=== PATIENT | male | born 1970 | race African-American/Black ===

== ENCOUNTER 2017-01-06 16:43 | Emergency (ER) | payer OTHER ==
--- NOTE | ~2017-01-06 | EKG ---
PATIENT: DANIEL LINK UNIT #: [id number] Ventricular Rate: 81 BPM Atrial Rate: 81 BPM P-R Interval: 178 ms QRS Duration: 92 ms Q-T Interval: 388 ms QTC Calculation(Bezet): 450 ms P [place]: 67 degrees Calculated R [place]: 84 degrees Calculated T [place]: 58 degrees Diagnosis Line: Normal sinus rhythm Diagnosis Line: Nonspecific ST and T wave abnormality Diagnosis Line: Abnormal ECG Diagnosis Line: When compared with ECG of 16-DEC-2015 02:56, Diagnosis Line: QT has lengthened Diagnosis Line: Confirmed by KENNA YANG MD ([id number]) on Diagnosis Line: 01/08/2017 1:13:51 PM INTERPRETING MD: [email or web address]
[~2017-01-06 16:43] MED LIST: FLEXERIL10 MG PO; VICODIN 5/1 TAB 5/50 PO
== END 2017-01-06 17:50 | disposition left against medical advice (07) ==
LOC: CED 16:43
DX: I10 Essential (primary) hypertension (principal); F41.9 Anxiety disorder, unspecified; F17.200 Nicotine dependence, unspecified, uncomplicated; Z88.0 Allergy status to penicillin; Z79.899 Other long term (current) drug therapy
CPT/HCPCS: 93005; 99283